=== PATIENT | male | born 1950 | race Caucasian/White ===

== ENCOUNTER 2021-08-15 08:54 | Outpatient (CLI) | payer OTHER ==
[~2021-08-15] VITALS: Ht 172.7 cm; Wt 58.7 kg
[2021-08-15] VITALS (16 sets, daily range): BP systolic 103–162; BP diastolic 61–88; PULSE 80–91
[~2021-08-15 08:54] MED LIST: ALBUTEROL0.83 MG/ML IH; DULERA1 ARO IH; LIPITOR20 MG PO; PROAIR HFA0.09 MG/AC IH; SPIRIVA RE2.5 MCG/Ac IH
--- NOTE | 2021-08-15 10:45 | NUR ---
Report from Yamila CHAMBERS. Bandaid to right upper back CD&I. VSS. Pt denies pain and needs at this time. Call light within reach
--- NOTE | 2021-08-15 13:30 | NUR ---
INT discontinued intact. Discharge instructions given. Transferred to private car by victoria
== END 2021-08-15 13:32 | disposition home or self-care (01) ==
LOC: COL.RAD 08:54
DX: R91.1 Solitary pulmonary nodule (principal)
CPT/HCPCS: 32107